=== PATIENT | male | born 1955 | race Caucasian/White ===

== ENCOUNTER 2024-08-20 11:20 | Day surgery (SDC) | payer MEDICARE, OTHER ==
[2024-08-19 15:35] VITALS: BMI 27.8
[2024-08-20] MEDS ORDERED: PROPOFOL 20 ML ONE (12:28)
[2024-08-20] MEDS ORDERED: Midazolam HCl 2 mg/2 ml Vial ONE (12:28)
[2024-08-20] MEDS ORDERED: fentaNYL PF 100 MCG/2 ML SYRINGE ONE (12:28)
[2024-08-20 13:10] LABS: #Basophils 0.11 10x3/uL (0.0-0.2); %Eosinophils 0.6 % (0.0-10.0); %Lymphocytes 13.3 % (21.0-51.0); %Monocytes 8.9 % (0.0-10.0); %Neutrophils 75.4 % (42.0-75.0); Hematocrit 37.8 % (42.0-52.0); Hemoglobin 13.2 g/dL (14.0-18.0); Mean Corpuscular HGB CONC 34.9 g/dL (32.0-36.0); Mean Corpuscular Hemoglobin 30.6 pg (27.0-31.0); Mean Corpuscular Volume 87.7 fL (78.0-98.0); Mean Platelet Volume 9.1 fL (7.4-10.4); Platelet Count 274 10x3/uL (130-400); RBC Distribution Width 12.3 % (11.5-14.5); Red Blood Cell (RBC) Count 4.31 mill/uL (4.70-6.10)
[2024-08-20 13:34] LABS: Anion Gap 16 mmol/L (10-20); BUN (Urea Nitrogen) 17 mg/dL (8.4-25.7); Calc. Creatinine Clearance 80 mL/min (70-130); Calcium 9.4 mg/dL (7.8-10.44); Carbon Dioxide 23 mmol/L (23-31); Chloride 99 mmol/L (98-107); Estimated GFR 75; Glucose 124 mg/dL (80-115); Potassium 3.4 mmol/L (3.5-5.1); Sodium 135 mmol/L (136-145)
[2024-08-20 13:42] LABS: INR-International Normal Ratio 1.2; Prothrombin Time 15.2 sec (12.0-14.7)
[2024-08-20] MEDS ORDERED: CEFAZOLIN 2 GM VIAL ONE (13:59)
[2024-08-20] MEDS ORDERED: PHENYLEPHRINE-NS 100 MCG/ML 10 ML SYRINGE ONE (14:16)
[2024-08-20] MEDS ORDERED: Rocuronium Bromide 10 MG/ML (10ML VIAL) ONE (14:16)
[2024-08-20] MEDS ORDERED: Lidocaine 1% PF 5 ML VIAL ONE (14:16)
[2024-08-20] MEDS ORDERED: NEOSTIGMINE 3 MG/3 ML SYRINGE ONE (14:16)
[2024-08-20] MEDS ORDERED: Ketamine In 0.9 % NaCl 50 MG/5 ML SYRINGE ONE (14:38)
[2024-08-20] MEDS ORDERED: Glycopyrrolate 0.2 MG/ML 5 ML SYRINGE ONE (14:39)
[2024-08-20] MEDS ORDERED: Vancomycin 1 GM VIAL ONE (14:41)
[2024-08-20] MEDS ORDERED: Dexamethasone 20 MG/5 ML VIAL ONE (14:49)
[2024-08-20] MEDS ORDERED: Ondansetron PF 4 MG/2 ML Vial ONE (14:49)
[2024-08-20] MEDS ORDERED: fentaNYL 50 mcg/mL 1 mL Vial ONE ×3 (16:16→17:05)
[2024-08-20] MEDS ORDERED: oxyCODONE 5 MG TAB ONE (16:40)
== END 2024-08-20 17:36 | disposition home or self-care (01) ==
LOC: EDSEX 11:20 → SDC 11:20
PROVIDERS: ATTEND Surgery
PROC: 0HQ4XZZ Repair Neck Skin, External Approach (ICD-10-PCS; principal; 2024-08-20)
DX: T81.31XA Disruption of external operation (surgical) wound, not elsewhere classified, initial encounter (principal); I10 Essential (primary) hypertension; E78.5 Hyperlipidemia, unspecified; I25.10 Atherosclerotic heart disease of native coronary artery without angina pectoris; I48.91 Unspecified atrial fibrillation; Z95.1 Presence of aortocoronary bypass graft; G47.30 Sleep apnea, unspecified; Z87.891 Personal history of nicotine dependence; Z98.890 Other specified postprocedural states; Z79.899 Other long term (current) drug therapy
CPT/HCPCS: 10180; 80048; 85025; 85610; 85730; 87070; 87075; 87205; 97139; J1100; J2250; J2405; J2704; J3010; J3490; 87077; 87186; 93005; 93010; J3370